=== PATIENT | male | born 1990 ===

== ENCOUNTER 2017-02-11 19:55 | Emergency (ER) | payer BC ==
[2017-02-11 20:13] VITALS: BP 131/95; PULSE 83; RESP 16; TEMP 98.2; O2SAT 100
[2017-02-11] MEDS ORDERED: Lidocaine 1% Inj (20ml) IJ STA (20:47)
[2017-02-11] MEDS ORDERED: TDAP Vaccine 0.5 mL Syr IM ONE (20:47)
--- NOTE | 2017-02-11 20:59 | ED PDOC ---
HPI: Wound Care - HPI Time Seen by Provider: 02/11/17 20:47 Chief Complaint (Nursing): Eye Problem Chief Complaint (Provider): laeration History Per: Patient Exam Limitations: no limitations Additional Complaint(s): 26yo M in ED sustained laceration to left ey and left ear after an trip and fall into fence at 3 am this morning. admits to REARDON, no LOC, vision changes, dizziness , change in gait, speech memory, neck pain. tetanus not uptodate. Past Medical History Reviewed: Historical Data, Nursing Documentation, Vital Signs Vital Signs: Last Vital Signs Temp 98.2 F 02/11/17 20:09 Pulse 83 02/11/17 20:09 Resp 16 02/11/17 20:09 BP 131/95 H 02/11/17 20:09 Pulse Ox 100 02/11/17 20:09 - Family History Family History: States: Unknown Family Hx - Home Medications Home Medications: Ambulatory Orders Medication Instructions Recorded Cephalexin [cephalexin] 500 mg PO BID #20 cap 02/11/17 - Allergies Allergies/Adverse Reactions: Allergies Allergy/AdvReac Type Severity Reaction Status Date / Time No Known Allergies Allergy Verified 02/11/17 20:09 Review of Systems ROS Statement: Except As Marked, All Systems Reviewed And Found Negative Constitutional: Negative for: Weakness, Malaise Eyes: Negative for: Vision Change, Conjunctivae Inflammation Neurological: Positive for: Headache Physical Exam - Reviewed Nursing Documentation Reviewed: Yes Vital Signs Reviewed: Yes - Physical Exam Appears: Positive for: Non-toxic, No Acute Distress Head Exam: Positive for: ATRAUMATIC, NORMAL INSPECTION, NORMOCEPHALIC Skin: Positive for: Normal Color, Warm, Rash (laeration to the side left eye with some upper eye lid involvment-irregular 4cm wide and partial thickness. no active bleeding. swelling noted to upper eye lip, no hyphem ano subconjtival hemmorrage no pain wit EOM. laceration <.5 to left pinna mild welklnig note to inner pinna. no evidence at this time of caluiflower ear. no orbital floor step off or tendenress bruising noted. no nasal bridge deformity or tenderness noted no bleeding in b/l nares noted. no hematoma to scalp noted. inner ear: normal TM no blood in canal. ) Eye Exam: Positive for: Normal appearance, EOMI, PERRL ENT: Positive for: Other (ear : kleft swelling noted with healing laceratoin to pinna. ) Cardiovascular/Chest: Positive for: Regular Rate, Rhythm Respiratory: Positive for: CNT, Normal Breath Sounds Gastrointestinal/Abdominal: Positive for: Normal Exam, Bowel Sounds, Soft. Negative for: Tenderness Neurologic/Psych: Positive for: Alert, instructional resource teacher II-XII (intact), Oriented, Cerebellar Tests (intact), Gait (stable). Negative for: Motor/Sensory Deficits - ECG O2 Sat by Pulse Oximetry: 100 - Progress ED Course And Treament: pt will require laceration repair, tetatnus booster and Ct of head. Procedure: Wound Repair - Time Performed Time Performed: 23:34 - Time Out Time Out: Side verified, Site verified, Patient ID confirmed, Sterile procedures obs. - Procedure Procedure: Wound Repair: left eyelid/lateral side of eye - Consent Obtained Consent obtained: Verbal - Performed by Performed by: Mid-level Provider - Indications Indication(s):: Laceration - Location Location:: Left, Eyelid Shape:: Curvilinear Dimensions Length cm: 2.5 Depth:: Epidermis - Anesthetic Technique Anesthetic Technique: Local Local/Regional Anesthetic:: Lidocaine 1% - Debris Debris:: None - Irrigated Irrigated with ml of normal saline: 100 - Complexity Complexity:: Intermediate (2 layer) (deep layer #2 6-0 absorbable. superficial layer-7 sutures placed 5-0 nylon) - Wound repair method Sutures:: Technique (simple interrupted) - Patient tolerated procedure Patient Tolerated Procedure:: Well Medical Decision Making Medical Decision Making: pt ad vised not to wet wound Head CT negative advised to return to ED in 5-6 days for removal. to prevent cauliflower ear-compression appleid to left ear. advised strongly tokeep compression and f.u with pmd advised to not wet wound. Rx abx Disposition - Clinical Impression Clinical Impression: Laceration - Patient ED Disposition Is Patient to be Admitted: No Counseled Patient/Family Regarding: Studies Performed, Diagnosis, Need For Followup, Rx Given - Disposition Disposition: Routine/Home Disposition Time: 23:39 Condition: STABLE Additional Instructions: keep wound clean, do take your antibiotics and return in 5-6 days for removal Prescriptions: Cephalexin [cephalexin] 500 mg PO BID #20 cap Instructions: Care For Your Stitches (ED), Laceration (DC), Contusion in Adults (ED), Hematoma (ED)
[2017-02-11] MEDS ORDERED: Lidocaine 1% Inj (20ml) ONE (21:32)
--- NOTE | 2017-02-11 22:48 | CT ---
EXAM: CT Head Without Intravenous Contrast CLINICAL HISTORY: 26 years old, male; Injury or trauma; Fall; Initial encounter; Blunt trauma (contusions or hematomas); Injury date: 02-11-2017; Injury details: Patient states: He tripped and fell into a fence this am at 3a. M. Left eye laceration; Additional info: Head injury ETOH TECHNIQUE: Axial computed tomography images of the head/brain without intravenous contrast. This CT exam was performed using one or more of the following dose reduction techniques: automated exposure control, adjustment of the mA and/or kV according to patient size, and/or use of iterative reconstruction technique. Coronal and sagittal reformatted images were created and reviewed. COMPARISON: No relevant prior studies available. FINDINGS: Brain: No acute intracranial hemorrhage. No significant white matter disease. No edema. Ventricles: No significant ventriculomegaly. Bones: Left periorbital inflammation, without acute displaced fracture. Sinuses: Unremarkable as visualized. No acute sinusitis. Mastoid air cells: Unremarkable as visualized. No mastoid effusion. IMPRESSION: No acute intracranial hemorrhage, or suspicious mass effect.
[2017-02-11] MEDS ORDERED: Oxycodone/Acetaminophen 5/325 mg Tab PO STA (23:37)
[2017-02-11] MEDS ORDERED: Oxycodone/Acetaminophen 5/325 mg Tab ONE (23:51)
== END 2017-02-12 00:02 | disposition home or self-care (01) ==
LOC: H.ER 19:55
DX: S09.90XA Unspecified injury of head, initial encounter (principal); S01.312A Laceration without foreign body of left ear, initial encounter; S01.119A Laceration without foreign body of unspecified eyelid and periocular area, initial encounter; W01.0XXA Fall on same level from slipping, tripping and stumbling without subsequent striking against object, initial encounter; Y92.89 Other specified places as the place of occurrence of the external cause